=== PATIENT | female | born 1965 | race Caucasian/White ===

== ENCOUNTER → 2018-12-02 | Outpatient (CLI) | payer BC ==
[2018-12-02 18:41] LABS: Anion Gap 9 mmol/L (6-16); Blood Urea Nitrogen 10 mg/dL (8-24); Bun/Creatinine Ratio 11.8 (12.0-20.0); CO2, Blood 27 mmol/L (21-32); Calcium, Blood 8.8 mg/dL (8.5-10.1); Chloride, Blood 105 mmol/L (98-108); Creatinine, Blood 0.85 mg/dL (0.40-1.00); Glomerular Filtration Rate >60 (60-); Glucose, Blood 104 mg/dL (70-99); Potassium, Blood 3.4 mmol/L (3.5-5.5); Sodium, Blood 141 mmol/L (136-145)
== END | disposition home or self-care (01) ==
LOC: LAB EV 18:32 → LAB SHORT 18:32
PROVIDERS: Family Medicine
DX: I10 Essential (primary) hypertension (principal)
CPT/HCPCS: 80048

== ENCOUNTER 2020-02-01 19:01 | Emergency (ER) | payer BC ==
[~2020-02-01] VITALS: Ht 157.5 cm; Wt 64.4 kg
== END 2020-02-01 21:13 | disposition home or self-care (01) ==
LOC: ER 19:01
DX: M25.551 Pain in right hip (principal); Z88.1 Allergy status to other antibiotic agents; W55.39XA Other contact with other hoof stock, initial encounter; W18.30XA Fall on same level, unspecified, initial encounter
CPT/HCPCS: 73502; 99283-25; A9270

== ENCOUNTER 2020-05-03 09:23 | Emergency (ER) | payer BC ==
[~2020-05-03] VITALS: Ht 170.2 cm; Wt 65.8 kg
[2020-05-03] MEDS ORDERED: PROM25 PO (11:43)
[2020-05-03] MEDS ORDERED: ALBU90OI INH (11:43)
== END 2020-05-03 12:25 | disposition home or self-care (01) ==
LOC: ER 09:23
DX: T59.811A Toxic effect of smoke, accidental (unintentional), initial encounter (principal); S93.401A Sprain of unspecified ligament of right ankle, initial encounter; R06.00 Dyspnea, unspecified; Z88.8 Allergy status to other drugs, medicaments and biological substances; X00.0XXA Exposure to flames in uncontrolled fire in building or structure, initial encounter
CPT/HCPCS: 36415; 71046; 73610; 82375; 99285-25; A9270

== ENCOUNTER → 2021-04-02 | Outpatient (CLI) | payer BC ==
[~2021-04-02] MED LIST: ALBU90OI INH; PROM25 PO
== END | disposition home or self-care (01) ==
LOC: LAB SHORT 14:16
DX: M25.471 Effusion, right ankle (principal)
CPT/HCPCS: 84550

== ENCOUNTER 2024-10-30 08:03 | Day surgery (SDC) | payer BC ==
[~2024-10-30] VITALS: Ht 157.5 cm; Wt 69.0 kg
[2024-10-30] MEDS ORDERED: Tranexamic Acid 100 ML IV ONE (08:39)
[2024-10-30] MEDS ORDERED: FentaNYL Citrate 50 MCG/ML 2 ML Injection ONE (09:14)
[2024-10-30] MEDS ORDERED: Sugammadex Sodium 200 MG/2ML SDV (100 MG/ML) ONE ×2 (09:15→09:38)
[2024-10-30] MEDS ORDERED: Ondansetron HCl 2 MG / ML 2ML Vial ONE ×2 (09:15→10:12)
[2024-10-30] MEDS ORDERED: Dexamethasone Sod Phos 10 MG/ML 1ML VIAL ONE (09:15)
[2024-10-30] MEDS ORDERED: Rocuronium Bromide 10 MG/ML 5ML Injection IV ONE (09:33)
[2024-10-30] MEDS ORDERED: Metoclopramide HCl 5MG / ML 2ML Vial ONE (09:53)
--- NOTE | 2024-10-30 10:10 | NUR ---
10/30/24 1010 Norma Stearns VSS STABLE UPON ARRIVAL. ORAL SECRETIONS SUCTIONED. MINIMAL BLOOD IN SALIVA MEDICATED IN PACU FOR NAUSEA [facility]
--- NOTE | 2024-10-30 11:15 | NUR ---
10/30/24 1115 Norma Stearns PT TOOK 1 ICE CHIP, BUT DECLINED FURTHER PO. IV FLUIDS CONTINUE TO RUN IN. VERBAL ORDERS OBTAINED FROM DR. GARCÍA FOR SCOPE PATCH AND DROPERIDOL
[2024-10-30] MEDS ORDERED: Prochlorperazine Edisylate 10 mg Vial IV PRN (12:05)
[2024-10-30 14:44] VITALS: BP 156/76
== END 2024-10-30 14:48 | disposition home or self-care (01) ==
LOC: ORSCSDS 08:03
PROVIDERS: Otolaryngology
PROC: 0CBPXZZ Excision of Tonsils, External Approach (ICD-10-PCS; principal; 2024-10-30 09:30)
DX: J35.01 Chronic tonsillitis (principal); E03.9 Hypothyroidism, unspecified
CPT/HCPCS: 88304; A9270; J0780; J1100; J1790; J2405; J2704; J2765; J3010; J7120